=== PATIENT | male | born 1980 | race Caucasian/White ===

== ENCOUNTER 2017-02-23 15:30 | Emergency (ER) | payer OTHER ==
[2017-02-23 15:37] VITALS: BP 123/71
--- NOTE | 2017-02-23 15:57 | UC ---
Abdominal Pain Male HPI - HPI Summary HPI Summary: 37 yo male with diffuse upper abd pain and bloating x 3 days unable to eat because attempts to eat dramatically increase his pain nausea no vomiting no diarrhea pain worse with movement or straightening out fully some dark stool but has been taking peptobismal hx of bleeding peptic ulcers - History of Current Complaint Chief Complaint: UCAbdominalPain Stated Complaint: ABD PAIN Time Seen by Provider: 02/23/17 15:41 Onset/Duration: Gradual Onset, Lasting Days Timing: Constant Severity Initially: Moderate Severity Currently: Moderate Pain Intensity: 7 Location: Diffuse Radiates: No Character: Aching, Cramping, Sharp Aggravating Factor(s): Food, Movement Alleviating Factor(s): Rest Associated Signs And Symptoms: Positive: Decreased Appetite, Nausea. Negative: Vomiting, Diarrhea, Penile Discharge - Allergies/Home Medications Allergies/Adverse Reactions: Allergies Allergy/AdvReac Type Severity Reaction Status Date / Time No Known Allergies Allergy Verified 02/23/17 15:37 PMH/Surg Hx/FS Hx/Imm Hx Previously Healthy: Yes GI/ History: Ulcer - Surgical History Surgical History: Yes Surgery Procedure, Year, and Place: 1995 L ankle arthoscopic [place]. left foot fracture pin and plate - Family History Known Family History: Positive: Cardiac Disease, Hypertension, Diabetes Family History: father - heart disease - Social History Alcohol Use: None Substance Use Type: None Smoking Status (MU): Former Smoker Type: Cigarettes Amount Used/How Often: [id number] YRS Have You Smoked in the Last Year: Yes Household Exposure Type: Cigarettes - Immunization History Most Recent Influenza Vaccination: none Most Recent Tetanus Shot: utd Most Recent Pneumonia Vaccination: none Review of Systems Constitutional: Negative Skin: Negative Eyes: Negative ENT: Negative Respiratory: Negative Cardiovascular: Negative Gastrointestinal: Abdominal Pain, Nausea Genitourinary: Negative Motor: Negative Neurovascular: Negative Musculoskeletal: Negative Neurological: Negative Psychological: Negative Is Patient Immunocompromised?: No All Other Systems Reviewed And Are Negative: Yes Physical Exam Triage Information Reviewed: Yes Appearance: Well-Appearing, No Pain Distress, Well-Nourished Vital Signs: Initial Vital Signs Temp 98.4 F 02/23/17 15:34 Pulse 86 02/23/17 15:34 Resp 18 02/23/17 15:34 BP 123/71 02/23/17 15:34 Pulse Ox 100 02/23/17 15:34 Eyes: Positive: Conjunctiva Clear ENT: Positive: Hearing grossly normal, Pharynx normal. Negative: Nasal congestion, Nasal drainage, Tonsillar swelling, Tonsillar exudate, Trismus, Muffled/hoarse voice Neck: Positive: Supple, Nontender, No Lymphadenopathy Respiratory: Positive: Lungs clear, Normal breath sounds, No respiratory distress, No accessory muscle use Cardiovascular: Positive: RRR, No Murmur Abdomen Description: Positive: No Organomegaly, Soft, Distended, Other: - most tendern LUQ. Negative: Nontender, CVA Tenderness (R), CVA Tenderness (L) Musculoskeletal: Positive: ROM Intact, No Edema Neurological: Positive: Alert Psychological Exam: Normal Skin Exam: Normal Abd Pain Male Course/Dx - Course Course Of Treatment: I suggested patient go to the ED for further investigation of his symtpoms. My biggest concerns are PUD and diverticulitis. He refuses. Aware he could have a surgical problem or other issue which would necessitate admission - Differential Dx/Clinical Impression Provider Diagnoses: abdominal pain of uncertain cause Discharge - Discharge Plan Condition: Guarded Disposition: AGAINST MEDICAL ADVICE Prescriptions: Ciprofloxacin TAB* [Cipro 750 MG Tab*] 750 mg PO BID #14 tab Famotidine TAB* [Pepcid 20 MG TAB*] 20 mg PO DAILY #14 tab Metronidazole [Flagyl 500 MG TAB] 500 mg PO QID #28 tab Patient Education Materials: Diverticulitis (ED), Acute Abdominal Pain (ED) Referrals: [facility] RE[facility]ERRAL [Outside] - As Soon As Possible No Primary Care Phys,NOPCP [Primary Care Provider] - Additional Instructions: as discussed : YOU SHOULD GO TO THE ER FOR FURTHER INVESTIGATION OF YOUR SYMPTOMS YOU MAY HAVE A SURGICAL PROBLEMS IF YOU RECONSIDER GO TO THE ER WE WILL TREAT YOU FOR POSSIBLE DIVERTICULITIS BUT THERE ARE MANY OTHER CONCERNING THINGS WHICH COULD BE CAUSING YOUR SYMPTOMS
== END 2017-02-23 16:31 | disposition left against medical advice (07) ==
LOC: UCEAST 15:30
DX: F17.210 Nicotine dependence, cigarettes, uncomplicated (principal); R10.9 Unspecified abdominal pain
CPT/HCPCS: 81003; 99212; G0463

== ENCOUNTER 2018-07-04 12:50 | Emergency (ER) | payer SELFPAY ==
[2018-07-04 13:29] VITALS: BP 110/76
--- NOTE | 2018-07-04 14:31 | UC ---
Skin Complaint HPI - HPI Summary HPI Summary: A COUPLE OF DAYS AGO PATIENT NOTICED REDNESS TO HIS NOSE. REDNESS SPREAD TO BOTH HIS CHEEKS AND NOW IS EXTENDING DOWN THE RIGHT SIDE OF HIS FACE. STATES IT IS MILDLY TENDER AND ITCHY. HIS THROAT AND TONGUE FEEL "SCRATCHY" BUT HE DENIES ANY SWELLING OF THE LIPS OR TONGUE. NO DIFFICULTY BREATHING OR AIRWAY COMPROMISE. NO CHEST PAIN. PATIENT DENIES FEVER, MUSCLE ACHES, JOINT PAIN. NO NAUSEA OR MORATAYA. HAS SENSITIVE SKIN AND REPORTS ALLERGIES TO CERTAIN LAUNDRY DETERGENTS. HE HAS RECENTLY STARTED USING A NEW SHAVING CREAM AND SHAMPOO. NO NEW MEDS. - History of Current Complaint Chief Complaint: UCRespiratory Time Seen by Provider: 07/04/18 13:39 Stated Complaint: FACIAL SWELLING Hx Obtained From: Patient Onset/Duration: Gradual Onset, Lasting Days, Still Present Timing: Constant Onset Severity: Moderate Current Severity: Moderate Pain Intensity: 5 Pain Scale Used: 0-10 Numeric Location: Discrete - FACE Character: Pruritus, Pain, Redness, Raised Aggravating Factor(s): Touch Alleviating Factor(s): Nothing Associated Signs & Symptoms: Positive: Rash, Tenderness. Negative: Nausea, Difficulty Breathing, Fever, Cough, Chest Pain, Throat Tightening - Allergy/Home Medications Allergies/Adverse Reactions: Allergies Allergy/AdvReac Type Severity Reaction Status Date / Time No Known Allergies Allergy Verified 07/04/18 13:28 Home Medications: Home Medications diphenhydrAMINE HCl [Benadryl Allergy] 50 mg PO ONCE PRN 07/04/18 [History Confirmed 07/04/18] PMH/Surg Hx/FS Hx/Imm Hx Respiratory History: Asthma GI/ History: Ulcer - Surgical History Surgical History: Yes Surgery Procedure, Year, and Place: 1995 L ankle arthoscopic [place]. left foot fracture pin and plate - Family History Known Family History: Positive: Cardiac Disease, Hypertension, Diabetes Family History: father - heart disease - Social History Alcohol Use: Rare Substance Use Type: None Smoking Status (MU): Light Every Day Tobacco Smoker Type: Cigarettes, eCigarettes Amount Used/How Often: 1PPweek 24 YRS Have You Smoked in the Last Year: Yes Household Exposure Type: Cigarettes - Immunization History Most Recent Influenza Vaccination: none Most Recent Tetanus Shot: utd Most Recent Pneumonia Vaccination: none Review of Systems All Other Systems Reviewed And Are Negative: Yes Constitutional: Positive: Negative Skin: Positive: Rash Respiratory: Positive: Negative Cardiovascular: Positive: Negative Gastrointestinal: Positive: Negative Musculoskeletal: Positive: Negative Physical Exam Triage Information Reviewed: Yes Appearance: Well-Appearing, No Pain Distress, Well-Nourished Vital Signs: Initial Vital Signs Temp 99.5 F 07/04/18 13:24 Pulse 96 07/04/18 13:24 Resp 18 07/04/18 13:24 BP 110/76 07/04/18 13:24 Pulse Ox 100 07/04/18 13:24 Vital Signs Reviewed: Yes Eyes: Positive: Conjunctiva Clear ENT: Positive: Hearing grossly normal, Pharynx normal, TMs normal Dental: Positive: Gross Decay/Caries @ - DIFFUSELY Neck: Positive: Supple, Nontender, No Lymphadenopathy Respiratory Exam: Normal Cardiovascular Exam: Normal Abdomen Description: Positive: Soft Musculoskeletal: Positive: No Edema Neurological: Positive: Alert Psychological: Positive: Age Appropriate Behavior Skin: Positive: Rashes - RAISED, ERYTHEMATOUS RASH IN MALAR DISTRIBUTION EXTENDING TO RIGHT NASOLABIAL FOLD AND TO UPPER LIP. NO LESIONS. NO SCALING. NO CRUST. MILDLY TENDER. Course/Dx - Course Course Of Treatment: RASH IN MALAR DISTRIBUTION EXTENDING DOWN TO RIGHT NASOLABIAL FOLD TO THE UPPER LIP. MILDLY TENDER. CONSIDER ROSACEA VERSUS ALLERGIC DERMATITIS VERSUS INFLAMMATORY/CONNECTIVE TISSUE DISORDER. HAVE ADVISED PATIENT USE OTC TOPICAL HYDROCORTISONE CREAM SPARINGLY TO THE AFFECTED AREA AND WILL ALSO GIVE A SHORT COURSE OF ORAL PREDNISONE. WILL DRAW LABS TO FURTHER EVALUATE INCLUDING CBC, CMP, CONNECTIVE TISSUE PANEL, SED RATE AND CRP. ADVISED PATIENT TO CALL DERMATOLOGY TODAY FOR AN APPOINTMENT FOR FURTHER EVALUATION. AVOID POSSIBLE TRIGGERS INCLUDING NEW SHAVING CREAM AND SHAMPOO. - Diagnoses Provider Diagnosis: Dermatitis of face Discharge - Sign-Out/Discharge Documenting (check all that apply): Patient Departure All imaging exams completed and their final reports reviewed: No Studies - Discharge Plan Condition: Stable Disposition: HOME Prescriptions: predniSONE TAB* [Deltasone 20 MG TAB*] 40 mg PO DAILY #10 tab Patient Education Materials: Dermatitis (ED) Referrals: No Primary Care Phys,NOPCP [Primary Care Provider] - Additional Instructions: UNCLEAR ETIOLOGY OF YOUR RASH TODAY. CONSIDER ROSACEA VS ALLERGIC REACTION VS INFLAMMATORY SYNDROME USE DAILY HYPOALLERGENIC MOISTURIZING LOTION AVOID HEAT AND HOT WATER TAKE OTC ANTIHISTAMINE DAILY (CLARITIN (LORATADINE), ZYRTEC (CETIRIZINE) OR JASSON (FEXOFENADINE) IN THE MORNING, 25-50MG BENADRYL AT NIGHT) DO NOT SCRATCH KEEP COOL, CLEAN AND DRY USE OTC TOPICAL HYDROCORTISONE SPARINGLY 2 TIMES DAILY. KEEP AWAY FROM MUCOUS MEMBRANES. TAKE PREDNISONE DAILY FOR 5 DAYS WILL DRAW LABS INCLUDING BLOOD COUNT, COMPLETE METABOLIC PANEL, CONNECTIVE TISSUE PANEL, ESR AND CRP (MARKERS OF INFLAMMATION) TO FURTHER EVALUATE. CALL DERMATOLOGY TODAY TO SCHEDULE A FOLLOW-UP APPT THIS WEEK OR NEXT. DERMATOLOGY IN [place] DR. AMINTA BONILLA [facility], [facility] [address]; [address] [place] [address] Dr. Mary Joseph [place] Address: [address] [place] [address] [address] [place] [address] DR. ELIE TAYLOR [facility] D[facility] [address] [place] [address] DERMATOLOGY IN [place] Dr[address] Toña [place] DERMATOLOGY IN [place] DR. LAUREN VELAZQUEZ [phone] - Billing Disposition and Condition Condition: STABLE Disposition: Home
[2018-07-04 18:47] LABS: Calcium 9.7 mg/dL (8.6-10.3); Potassium 3.8 mmol/L (3.5-5.0); Total Bilirubin 0.7 mg/dL (0.2-1.0)
[2018-07-04 18:48] LABS: ABS Basophils 0.1 10^3/ul (0-0.2); ABS Eosinophils 0.2 10^3/ul (0-0.6); ABS Lymphocytes 2.3 10^3/ul (1.0-4.8); ABS Monocytes 1.1 10^3/ul (0-0.8); ABS Neutrophils 10.6 10^3/ul (1.5-7.7); ABS Nucleated RBC 0 10^3/ul; Eosinophil % 1.1 %; Hematocrit 44 % (42-52); Hemoglobin 14.9 g/dl (14.0-18.0); Mean Corpuscular HGB Conc 34 g/dl (31-36); Mean Corpuscular Hemoglobin 30 pg (27-31); Mean Corpuscular Volume 89 fL (80-94); Mean Platelet Volume 8.4 fL (7.4-10.4); Nucleated Red Blood Cells % 0; Platelet Count 263 10^3/ul (150-450); Red Blood Count 4.95 10^6/ul (4.00-5.40); Red Cell Distribution Width 14 % (10.5-15); White Blood Count 14.2 10^3/ul (3.5-10.8)
[2018-07-04 18:53] LABS: Albumin/Globulin Ratio 1.7 (1-3); BUN/Creatinine Ratio 13.4 (8-20); C Reactive Protein 41.18 mg/L (<8.01); EGFR African American 160.6 (>60); EGFR Non-African American 132.8 (>60)
[2018-07-05 11:40] LABS: Erythrocyte Sed Rate 32 mm/Hr (0-15)
--- NOTE | 2018-07-05 13:22 | UC ---
- Progress Note Progress Note: CBC WITH ELEVATED WBC/NEUTROPHIL COUNT. ESR AND CRP ELEVATED. ERYSIPELAS? KEFLEX SENT TO [facility]. FOLLOW-UP PCP IN 2-3 DAYS. TO ED IF SX WORSE. MAY NEED RHEUMATOLOGY EVAL BASED ON CONNECTIVE TISSUE PANEL WHICH IS STILL PENDING. I CALLED PT AND LEFT A MESSAGE TO CALL BACK. Course/Dx - Diagnoses Provider Diagnoses: Dermatitis of face Discharge - Sign-Out/Discharge Documenting (check all that apply): Post-Discharge Follow Up All imaging exams completed and their final reports reviewed: No Studies - Discharge Plan Condition: Stable Disposition: HOME Prescriptions: Cephalexin CAP* [Keflex 500 CAP*] 1,000 mg PO BID #40 cap predniSONE TAB* [Deltasone 20 MG TAB*] 40 mg PO DAILY #10 tab Patient Education Materials: Dermatitis (ED) Referrals: No Primary Care Phys,NOPCP [Primary Care Provider] - Additional Instructions: UNCLEAR ETIOLOGY OF YOUR RASH TODAY. CONSIDER ROSACEA VS ALLERGIC REACTION VS INFLAMMATORY SYNDROME USE DAILY HYPOALLERGENIC MOISTURIZING LOTION AVOID HEAT AND HOT WATER TAKE OTC ANTIHISTAMINE DAILY (CLARITIN (LORATADINE), ZYRTEC (CETIRIZINE) OR JASSON (FEXOFENADINE) IN THE MORNING, 25-50MG BENADRYL AT NIGHT) DO NOT SCRATCH KEEP COOL, CLEAN AND DRY USE OTC TOPICAL HYDROCORTISONE SPARINGLY 2 TIMES DAILY. KEEP AWAY FROM MUCOUS MEMBRANES. TAKE PREDNISONE DAILY FOR 5 DAYS WILL DRAW LABS INCLUDING BLOOD COUNT, COMPLETE METABOLIC PANEL, CONNECTIVE TISSUE PANEL, ESR AND CRP (MARKERS OF INFLAMMATION) TO FURTHER EVALUATE. CALL DERMATOLOGY TODAY TO SCHEDULE A FOLLOW-UP APPT THIS WEEK OR NEXT. DERMATOLOGY IN [place] DR. AMINTA BONILLA [facility], [facility] [address]; [address] [place] [address] Dr. Mary Joseph [place] Address: [address] [place] [address] DR. ELIE TAYLOR [facility] D[facility] [address] [place] [address] [address] IN [place] [address] Toña [place] DERMATOLOGY IN [place] DR. LAUREN VELAZQUEZ [phone] - Billing Disposition and Condition Condition: STABLE Disposition: Home
[2018-07-06 20:26] LABS: Cyclic Citrullinated Peptide <15.6 U
== END 2018-07-04 14:32 | disposition home or self-care (01) ==
LOC: UCEAST 12:50
DX: L30.9 Dermatitis, unspecified (principal); F17.210 Nicotine dependence, cigarettes, uncomplicated
CPT/HCPCS: 36415; 80053; 85025; 85652; 86038; 86140; 86200; 99212; G0463

== ENCOUNTER 2019-07-19 21:07 | Emergency (ER) | payer SELFPAY ==
[2019-07-19 21:24] VITALS: BP 124/96
--- NOTE | 2019-07-19 21:54 | UC ---
Dental HPI - HPI Summary HPI Summary: 39 yo with known dental decay, with onset of pain in the lower left molar yesterday. No fever, headache or chills; he has used about 1400mg of ibuprofen today. - History of Current Complaint Chief Complaint: UCDentalProblem Stated Complaint: DENTAL COMPLAINT Time Seen by Provider: 07/19/19 21:46 Hx Obtained From: Patient, Family/[place] [employer]er - here with male partner Onset/Duration: Gradual Onset Severity: Moderate Pain Intensity: 10 Aggravating Factor(s): Chewing - has not eaten today Alleviating Factor(s): OTC Meds Related History: Swelling - Allergies/Home Medications Allergies/Adverse Reactions: Allergies Allergy/AdvReac Type Severity Reaction Status Date / Time No Known Allergies Allergy Verified 07/19/19 21:21 Home Medications: Home Medications Penicillin VK 500 MG TAB(NF) [Penicillin VK 500 mg Tab] 500 mg PO QID #28 tab [Rx] PMH/Surg Hx/FS Hx/Imm Hx Previously Healthy: Yes - Surgical History Surgical History: Yes Surgery Procedure, Year, and Place: 1995 L ankle arthoscopic [place]. left foot fracture pin and plate - Family History Known Family History: Positive: Cardiac Disease - both parents have had MT's, Hypertension, Diabetes Family History: father - heart disease - Social History Occupation: Employed Full-time Lives: With Family Alcohol Use: Rare Substance Use Type: None Smoking Status (MU): Light Every Day Tobacco Smoker Type: Cigarettes, eCigarettes Amount Used/How Often: 1PPweek 24 YRS Have You Smoked in the Last Year: Yes Household Exposure Type: Cigarettes - Immunization History Most Recent Influenza Vaccination: none Most Recent Tetanus Shot: utd Most Recent Pneumonia Vaccination: none Review of Systems All Other Systems Reviewed And Are Negative: Yes Constitutional: Positive: Negative Skin: Positive: Negative Eyes: Positive: Negative ENT: Positive: Dental Pain. Negative: Sore Throat Respiratory: Positive: Negative Cardiovascular: Positive: Negative Gastrointestinal: Positive: Negative Genitourinary: Positive: Negative Motor: Positive: Negative Neurovascular: Positive: Negative Musculoskeletal: Positive: Negative Neurological/Mental Status: Positive: Negative Psychological: Positive: Negative Is Patient Immunocompromised?: No Physical Exam Triage Information Reviewed: Yes Appearance: Well-Appearing, Pain Distress - moderate Vital Signs: Initial Vital Signs Temp 98.2 F 07/19/19 21:22 Pulse 88 07/19/19 21:22 Resp 18 07/19/19 21:22 BP 124/96 07/19/19 21:22 Pulse Ox 100 07/19/19 21:22 Vital Signs Reviewed: Yes Eyes: Positive: Conjunctiva Clear ENT: Positive: Pharynx normal Dental: Positive: Percussion Tenderness @ Neck: Positive: Supple, Nontender, No Lymphadenopathy Respiratory: Positive: Lungs clear, Normal breath sounds Images Dental: 1 - deep decay with gum inflammation Dental Complaint Course/Dx - Course Course Of Treatment: pen VK, pain control discussed, and follow up with dentist essential. - Differential Dx/Diagnosis Differential Diagnosis/Dx: Dental Abscess, Dental Caries, Fractured Tooth Provider Diagnosis: Dental abscess Discharge ED - Sign-Out/Discharge Documenting (check all that apply): Patient Departure All imaging exams completed and their final reports reviewed: No Studies - Discharge Plan Condition: Stable Disposition: HOME Prescriptions: Penicillin VK 500 MG TAB(NF) [Penicillin VK 500 mg Tab] 500 mg PO QID #28 tab Patient Education Materials: Dental Abscess (ED) Referrals: No Primary Care Phys,NOPCP [Primary Care Provider] - Additional Instructions: Take the full course of antibiotics. Ensure that you contact a dentist for care. for control of pain: ~alternate use of ibuprofen 800mg three times per day with acetaminophen 650mg every 4 hours for control of pain. ~use warm water and salt swish and spit for control of pain. - Billing Disposition and Condition Condition: STABLE Disposition: Home
[2019-07-19] MEDS ORDERED: Penicillin VK TAB* 250 MG PO ONE (21:57)
[2019-07-19] MEDS ORDERED: Acetaminophen TAB* 325 MG PO ONE (21:57)
== END 2019-07-19 22:08 | disposition home or self-care (01) ==
LOC: UCCORT 21:07
DX: K04.7 Periapical abscess without sinus (principal)
CPT/HCPCS: 99212; A9270-GY; G0463